=== PATIENT | female | born 1970 | race Caucasian/White ===

== ENCOUNTER 2019-12-28 16:47 | Emergency (ER) | payer OTHER ==
[~2019-12-28] VITALS: Ht 177.8 cm; Wt 140.6 kg
--- NOTE | 2019-12-28 17:18 | NUR ---
PT IS IN ROOM #2B. DR MARSH EVALUATED THE PT.
[2019-12-28 17:22] LABS: *BILIRUBIN,URIN NEGATIVE (NEGATIVE); *BLOOD, URINE NEGATIVE (NEGATIVE); *CLARITY,URINE SLIGHTLY CLOUDY (CLEAR); *COLOR,URINE LIGHT YELLOW (YELLOW); *KETONES,URINE NEGATIVE (NEGATIVE); *UROBILINOGEN,URINE 0.2 E.U./dl (NORMAL); LEUKOCYTE ESTERASE ,URINE TRACE (NEGATIVE); NITRITE, URINE NEGATIVE (NEGATIVE); PH,URINE 5.5 (5.0-8.0); UGLUCOSE NEGATIVE (NEGATIVE)
[2019-12-28 17:46] LABS: BACTERIA,URINE FEW /HPF (NONE SEEN); COARSE GRANULAR CASTS,URINE 0-3 /LPF; SQUAMOUS EPITHELIAL CELL,UR FEW /HPF (NONE SEEN)
[2019-12-28] MEDS ORDERED: CEphaleXIN 500 MG CAPSULE ONE (18:00)
[2019-12-28] MEDS ORDERED: CEphaleXIN 500 MG CAPSULE PO ONE (18:00)
--- NOTE | 2019-12-28 18:39 | NUR ---
[employer] WAS CALLED ([phone]) TO GET INSURANCE AUTORISATION TO TRANSFER PT TO [facility]. TALKED TO JOSE. AUTORISATION NUMBER #[id number].
--- NOTE | 2019-12-28 19:03 | NUR ---
ASSUMED CARE OF PATIENT NO ACUTE DISTRESS NOTED. VSS
--- NOTE | 2019-12-28 21:03 | NUR ---
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 There will be another hour until their arrival due to issues obtaining a Barriatic gurney.
[2019-12-28] MEDS ORDERED: LORAZEPAM 2 MG/1 ML VIAL ONE (21:15)
[2019-12-28] MEDS ORDERED: LORAZEPAM 2 MG/1 ML VIAL IM ONE (21:15)
--- NOTE | 2019-12-28 21:22 | NUR ---
Patient became agitated, screaming at staff, stating " fuck off you yankers!". ER MD aware that patient is threatening staff.
--- NOTE | 2019-12-28 22:06 | NUR ---
[facility] at bedside for picking supervisor. Unit # [id number] [place]/Arturo EMT, report /chart given.
[2019-12-28 22:17] VITALS: BP 138/78
== END 2019-12-28 22:18 ==
LOC: ER 16:50 → EDBD 16:50 → ER 22:18
DX: N39.0 Urinary tract infection, site not specified (principal); G89.29 Other chronic pain; M25.569 Pain in unspecified knee
CPT/HCPCS: 81001; 87086; 96372; 99283; J2060; A4663